=== PATIENT | male | born 1945 | race Caucasian/White ===

== ENCOUNTER 2018-02-17 14:28 | Observation (INO) | payer BC, MEDICARE, OTHER ==
[2018-02-17] MEDS ORDERED: 0.9 % SODIUM CHLORIDE 1000ML 1,000 ML IV PRN ×2 (14:46→18:43)
[2018-02-17] MEDS ORDERED: METHYLPREDNISOLONE PF 125MG/VIAL IVP ONE (14:48)
[2018-02-17] MEDS ORDERED: IPRATROPIUM/ALBUTEROL (0.5MG/3MG) NEB INH ONE (14:48)
[2018-02-17 14:54] LABS: HEMATOCRIT 43.2 % (42.0-52.0); MEAN CELL VOLUME 82.4 fl (81-97); MEAN CORPUSCULAR HEMOGLOBIN 26.7 pg (27-33); MEAN CORPUSCULAR HGB CONC 32.4 g/dl (32-36); MEAN PLATELET VOLUME 9.2 fl (7.4-10.4); PLATELET COUNT 271 K/uL (130-400); RED BLOOD COUNT 5.24 M/uL (4.40-5.70); RED CELL DISTRIBUTION WIDTH 16.8 % (11.5-14.5); WHITE BLOOD COUNT W/O DIFF 7.8 K/uL (4.2-12.2)
[2018-02-17 15:04] LABS: PLATELET ESTIMATE NORMAL (NORMAL)
[2018-02-17 15:09] LABS: BLOOD UREA NITROGEN 13 mg/dL (8-23); EST GLOMERULAR FILTRATION RATE > 60 mL/min
[2018-02-17 15:12] LABS: GLUCOSE,RANDOM 112 mg/dL (74-109)
[2018-02-17 15:18] LABS: CKMB 2.6 ng/mL (<6.73)
--- NOTE | 2018-02-17 15:25 | Emergency Department Record ---
History of Present Illness - General Chief Complaint: Difficulty Breathing Stated Complaint: SOB Time Seen by Provider: 02/17/18 14:45 Source: Patient, RN notes reviewed Mode of Arrival: Ambulatory - History of Present Illness Initial Comments: cough and SOB for 1 week and his pulse ox 84% on arrival and he is coughing up sputum. PMH of copd and right lung lobectomy 30 years ago Onset/Timin -: Week(s) Improves With: Oxygen, Rest Worsens With: Exertion Known History Of: Congestive heart failure, COPD Context: Other Treatments Prior to Arrival: None - Related Data Home Oxygen Therapy: No Home Medications Medication Instructions Recorded Confirmed Last Taken Atorvastatin Calcium [Lipitor] 10 mg PO DAILY 02/17/18 02/17/18 02/17/18 Azithromycin [Zithromax] 250 mg PO ASDIR 02/17/18 02/17/18 02/17/18 Budesonide/Formoterol Fumarate 10.2 gm IH BID 02/17/18 02/17/18 02/17/18 [Symbicort 160-4.5 Mcg Inhaler] Cetirizine HCl [Zyrtec] 10 mg PO DAILY 02/17/18 02/17/18 02/17/18 Cholecalciferol (Vitamin D3) 1,000 unit PO BID 02/17/18 02/17/18 02/17/18 [Vitamin D3] Cyanocobalamin (Vitamin B-12) 1,000 mcg PO DAILY 02/17/18 02/17/18 02/17/18 [Vitamin B-12] Diltiazem HCl [Cardizem LA] 360 mg PO DAILY 02/17/18 02/17/18 02/17/18 Fluticasone Propionate [Flonase] 2 spray EACH NARES BID 02/17/18 02/17/18 Folic Acid 1 mg PO BID 02/17/18 02/17/18 02/17/18 Furosemide [Lasix] 20 mg PO DAILY 02/17/18 02/17/18 02/17/18 Guaifenesin [Mucinex] 600 mg PO BID 02/17/18 02/17/18 02/17/18 Metoprolol Succinate [Toprol Xl] 25 mg PO DAILY 02/17/18 02/17/18 02/16/18 Rivaroxaban [Xarelto] 20 mg PO DAILY 02/17/18 02/17/18 02/16/18 Tiotropium [place] [Spiriva] 18 mcg IH BID 02/17/18 02/17/18 02/17/18 Valsartan 80 mg PO DAILY 02/17/18 02/17/18 02/17/18 Allergies Allergy/AdvReac Type Severity Reaction Status Date / Time No Known Drug Intolerances Allergy Unknown Unverified 03/04/14 10:02 Allergies: Allergy Unknown Uncoded 03/04/14 10:02 Travel Screening - Travel/Exposure Within Last 30 Days Have you traveled within the last 30 days?: No - Travel/Exposure Within Last Year Have you traveled outside the [place] in the last year?: No - Additonal Travel Details Have you been exposed to anyone with a communicable illness?: No - Travel Symptoms Symptom Screening: None Review of Systems Reviewed: No additional complaints except as noted below Constitutional: Reports: As per HPI. Denies: Chills, Fever, Malaise, Night sweats, Weakness, Weight change Eyes: Reports: As per HPI. Denies: Eye discharge, Eye pain, Photophobia, Vision change ENT: Reports: As per HPI, Congestion. Denies: Dental pain, Ear pain, Epistaxis , Hearing loss, Throat pain Respiratory: Reports: As per HPI, Cough, Dyspnea. Denies: Hemoptysis, Stridor, Wheezes Cardiovascular: Reports: As per HPI, Dyspnea on exertion. Denies: Arrhythmia, Chest pain, Edema, Murmurs, Orthopnea, Palpitations, Paroxysmal nocturnal dyspnea, Rheumatic Fever, Syncope Endocrine: Reports: As per HPI. Denies: Fatigue, Heat or cold intolerance, Polydipsia, Polyuria Gastrointestinal: Reports: As per HPI. Denies: Abdominal pain, Constipation, Diarrhea, Hematemesis, Hematochezia, Melena, Nausea, Vomiting Genitourinary: Reports: As per HPI. Denies: Dysuria, Frequency, Hematuria, Incontinence, Retention, Testicular pain, Testicular mass, Urgency Musculoskeletal: Reports: As per HPI. Denies: Arthralgia, Back pain, Gout, Joint swelling, Myalgia, Neck pain Skin: Reports: As per HPI. Denies: Bruising, Change in color, Change in hair/ nails, Lesions, Pruritus, Rash Neurological: Reports: As per HPI. Denies: Abnormal gait, Confusion, Headache, Numbness, Paresthesias, Seizure, Tingling, Tremors, Vertigo, Weakness Psychiatric: Reports: As per HPI. Denies: Anxiety, Auditory hallucinations, Depression, Homicidal thoughts, Suicidal thoughts, Visual hallucinations Hematological/Lymphatic: Reports: As per HPI. Denies: Anemia, Blood Clots, Easy bleeding, Easy bruising, Swollen glands Past Medical History - SOCIAL HISTORY Smoking Status: Former smoker Alcohol Use: Heavy Drug Use: None - RESPIRATORY Hx Respiratory Disorders: Yes Hx COPD: Yes Hx Pulmonary Embolism: Yes - CARDIOVASCULAR Hx Cardio Disorders: Yes Hx CHF: Yes Hx Hypertension: Yes - NEURO Hx Neuro Disorders: No - GI Hx GI Disorders: Yes Hx Ulcer: Yes (ulceritive colitis) - Hx Genitourinary Disorders: No - ENDOCRINE Hx Endocrine Disorders: Yes Hx Diabetes: Yes (controlled went away) - MUSCULOSKELETAL Hx Musculoskeletal Disorders: No - PSYCH Hx Psych Problems: No - HEMATOLOGY/ONCOLOGY Hx Hematology/Oncology Disorders: No Family Medical History Any Significant Family History?: No Physical Exam - General General Appearance: Alert, Oriented x3, Cooperative, Moderate distress - Head Head exam: Normal inspection - Eye Eye exam: Normal appearance, PERRL Pupils: Normal accommodation - ENT ENT exam: Normal exam, Mucous membranes moist, Normal external ear exam, Normal orophraynx, TM's normal bilaterally Ear exam: Normal external inspection. negative: External canal tenderness Nasal Exam: Normal inspection. negative: Discharge, Sinus tenderness Mouth exam: Normal external inspection, Tongue normal Teeth exam: Normal inspection. negative: Dental caries Throat exam: Normal inspection. negative: Tonsillar erythema, Tonsillar exudate - Neck Neck exam: Normal inspection, Full ROM. negative: Tenderness - Respiratory Respiratory exam: Respiratory distress, Wheezes - Cardiovascular Cardiovascular Exam: Regular rate, Normal rhythm, Normal heart sounds - GI/Abdominal GI/Abdominal exam: Soft, Normal bowel sounds. negative: Tenderness - Rectal Rectal exam: Deferred - exam: Deferred - Extremities Extremities exam: Normal inspection, Full ROM, Normal capillary refill. negative: Tenderness - Back Back exam: Reports: Normal inspection, Full ROM. Denies: Muscle spasm, Rash noted, Tenderness - Neurological Neurological exam: Alert, Normal gait, Oriented X3, Reflexes normal - Psychiatric Psychiatric exam: Normal affect, Normal mood - Skin Skin exam: Dry, Intact, Normal color, Warm Course Vital Signs 02/17/18 02/17/18 14:34 14:45 Temperature 97.7 F Pulse Rate 84 84 Respiratory 20 20 Rate Blood Pressure 187/80 Pulse Ox 84 L - Reevaluation(s) Reevaluation #1: discussed case with Do and will admit to Dr. Conrad for exacerbation of COPD bronchitis 02/17/18 17:09 Medical Decision Making - Lab Data Result diagrams: 02/17/18 14:45 02/17/18 14:45 Lab Results 02/17/18 02/17/18 02/17/18 Range/Units 14:45 14:45 14:45 WBC 7.8 (4.2-12.2) K/uL RBC 5.24 (4.40-5.70) M/uL Hgb 14.0 (14.0-18.0) gm/dl Hct 43.2 (42.0-52.0) % MCV 82.4 (81-97) fl MCH 26.7 L (27-33) pg MCHC 32.4 (32-36) g/dl RDW 16.8 H (11.5-14.5) % Plt Count 271 (130-400) K/uL MPV 9.2 (7.4-10.4) fl Neutrophils % 73.0 (47-80) % Eosinophils % Not Reportable Basophils % Not Reportable Lymphocytes 17.0 (16-45) % Monocytes 9.0 (0-9) % Platelet Estimate Normal (NORMAL) RBC Morphology Normal Eosinophil Count 1.0 (0-6) % APTT 33.8 (24.5-39.1) SECONDS Sodium 135 L (136-145) mmol/L Potassium 3.9 (3.4-4.5) mmol/L Chloride 92 L (98-107) mmol/L Carbon Dioxide 27.0 (22-29) mmol/L Anion Gap 16.0 (7-16) BUN 13 (8-23) mg/dL Creatinine 1.0 (0.7-1.2) mg/dL Estimated GFR > 60 mL/min Random Glucose 112 H (74-109) mg/dL Calcium 8.9 (8.8-10.2) mg/dL CK-MB (CK-2) 2.6 (<6.73) ng/mL Troponin T < 0.010 (0-0.010) ng/mL Disposition Clinical Impression: COPD (chronic obstructive pulmonary disease) with acute bronchitis, Hypoxia Decision to Admit: Admit from ER Condition: (2) Stable Forms: Patient Portal Access Time of Disposition: 17:11 Quality - Quality Measures Quality Measures: N/A - Blood Pressure Screening Does Patient Have Any of the Following: No Blood Pressure Classification: Pre-Hypertensive BP Reading Systolic Measurement: 187 Diastolic Measurement: 80 Screening for High Blood Pressure: < Pre-Hypertensive BP, F/U Documented > [ [id number]] Pre-Hypertensive Follow-up Interventions: Referral to alternative/primary care provider.
[2018-02-17] MEDS ORDERED: CEFTRIAXONE SODIUM 1 GM in 0.9 % SODIUM CHLORIDE 100ML 100 ML IVPB ONE (15:26)
[2018-02-17] MEDS ORDERED: AZITHROMYCIN 500 MG TABLET PO ONE (15:27)
[2018-02-17 17:39] LABS: INFLUENZA A NEGATIVE (NEGATIVE); INFLUENZA B NEGATIVE (NEGATIVE)
[2018-02-17] MEDS ORDERED: ALBUTEROL SULFATE (0.083%) 2.5 MG/3 ML NEB INH PRN (18:43)
[2018-02-17] MEDS ORDERED: ACETAMINOPHEN 500 MG TABLET PO PRN (18:43)
[2018-02-17] MEDS: CEFTRIAXONE SODIUM 1 GM in 0.9 % SODIUM CHLORIDE 100ML 100 ML IVPB SCH (18:59)
[2018-02-17] MEDS: METHYLPREDNISOLONE PF 125MG/VIAL IVP SCH (18:59)
[2018-02-17] MEDS: IPRATROPIUM/ALBUTEROL (0.5MG/3MG) NEB INH SCH ×2 (20:20→21:03)
[2018-02-17] MEDS: SYMBICORT PUFF SCH (21:00)
[2018-02-17] MEDS ORDERED: PATIENT OWN MED: PUFF SCH (22:00)
[2018-02-17] MEDS: GUAIFENESIN 600 MG TABCR PO SCH (22:34)
[2018-02-17] MEDS: FLUTICASONE PROPIONATE 50MCG NASAL 16 GM BTL SCH ×2 (22:34→22:37)
[2018-02-17] MEDS: FOLIC ACID 1 MG TABLET PO SCH (22:34)
[2018-02-18] MEDS: METHYLPREDNISOLONE PF 125MG/VIAL IVP SCH ×2 (03:49→14:21)
[2018-02-18] MEDS: IPRATROPIUM/ALBUTEROL (0.5MG/3MG) NEB INH SCH (06:07)
[2018-02-18 06:13] LABS: BASO % 0.2 % (0-6); HEMATOCRIT 39.1 % (42.0-52.0); HEMOGLOBIN 13.1 gm/dl (14.0-18.0); LYMPH % 9.4 % (16-45); MEAN CELL VOLUME 81.6 fl (81-97); MEAN CORPUSCULAR HEMOGLOBIN 27.3 pg (27-33); MEAN CORPUSCULAR HGB CONC 33.5 g/dl (32-36); MEAN PLATELET VOLUME 9.3 fl (7.4-10.4); MONO % 1.8 % (0-9); PLATELET COUNT 216 K/uL (130-400); RED BLOOD COUNT 4.79 M/uL (4.40-5.70); RED CELL DISTRIBUTION WIDTH 16.4 % (11.5-14.5); WHITE BLOOD COUNT W/O DIFF 6.6 K/uL (4.2-12.2)
[2018-02-18] MEDS: CEFTRIAXONE SODIUM 1 GM in 0.9 % SODIUM CHLORIDE 100ML 100 ML IVPB SCH (06:52)
[2018-02-18 06:53] LABS: PLATELET ESTIMATE NORMAL (NORMAL)
[2018-02-18 06:54] LABS: ALB/GLOB RATIO 1.5 (1.1-1.8); ALBUMIN 3.8 g/dL (4.0-5.0); ALKALINE PHOSPHATASE 62 U/L (40-129); ALT/SGPT 23 U/L (<41); AST/SGOT 23 U/L (10.0-50.0); BLOOD UREA NITROGEN 12 mg/dL (8-23); CREATININE 0.8 mg/dL (0.7-1.2); EST GLOMERULAR FILTRATION RATE > 60 mL/min; GLUCOSE,RANDOM 221 mg/dL (74-109); TOTAL PROTEIN 6.4 g/dL (6.6-8.7)
[2018-02-18] MEDS ORDERED: ALBUTEROL SULFATE (0.083%) 2.5 MG/3 ML NEB INH PRN (08:31)
[2018-02-18] MEDS: SYMBICORT PUFF SCH (09:53)
[2018-02-18] MEDS ORDERED: LORATADINE 10 MG TABLET PO SCH (10:00)
[2018-02-18] MEDS ORDERED: FUROSEMIDE 20 MG TABLET PO SCH (10:00)
[2018-02-18] MEDS ORDERED: VALSARTAN 80 MG TAB PO SCH (10:00)
[2018-02-18] MEDS ORDERED: AZITHROMYCIN 500 MG TABLET PO SCH (10:00)
[2018-02-18] MEDS ORDERED: DILTIAZEM 180MG CR CAPSULE PO SCH (10:00)
[2018-02-18] MEDS ORDERED: ATORVASTATIN 20 MG TABLET PO SCH (10:00)
[2018-02-18] MEDS ORDERED: METOPROLOL SUCC 25 MG TAB.ER PO SCH (10:00)
[2018-02-18] MEDS ORDERED: RIVAROXABAN 20 MG TABLET PO SCH (10:00)
[2018-02-18] MEDS: GUAIFENESIN 600 MG TABCR PO SCH (10:23)
[2018-02-18] MEDS: FOLIC ACID 1 MG TABLET PO SCH (10:25)
--- NOTE | 2018-02-18 10:25 | History & Physical ---
History of Present Illness - Date of Service Date of Service for History & Physical: 02/18/18 - History of Present Illness Admitting Diagnosis: copd exacerbation. hypoxia. bronchitis History of Present Illness: Pt. is a 73 year-old male who presented to the ED on 02/17/18 with complaint of shortness of breath and cough for 1 week and his pulse ox was 84% upon arrival. His cough was productive for sputum. 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 Pt. is on azithromycin 250mg three times/week for his COPD. In the ED, his vital signs were: BP 187/80, heart rate of 84, RR 20, T 97.7F , and pulse ox of 84% on room air. Chest xray was negative for infectious process. Influenza negative. EKG normal. CBC and CMP were unremarkable. Serial cardiac enzymes were normal. 2 liters of oxygen were initiated and azithromycin 500mg and Rocephin 1gm were administered. Based on his symptoms and comorbidities of COPD, he was admitted for COPD with acute bronchitis and hypoxia. 02/18/18: Pt. is resting in bed, he reports have symptoms have greatly improved and he feels like his breathing is back to his baseline. IV abx changed to PO. Morning CBC and CMP remain stable. Pt. expresses interest in discharge today , however, he has been using 2L of oxygen during this admission, otherwise, his saturation decreases to low-mid 80s. Home oxygen qualifier completed and pt. does quality for 2 liters of oxygen at rest/sleep and 3-4 liters for ambulation/ activity. Paper prescription provided and will arrange home O2. [facility] and his D[facility] must be covered by [facility], he has a f/u appt with [facility] on Tuesday. Plan to d/c home today with Cefdinir 300mg BID for 4 more days, azithromycin 500mg for 4 more days, prednisone 40mg for 4 days, and home oxygen therapy. Travel Screening - Travel/Exposure Within Last 30 Days Have you traveled within the last 30 days?: No - Travel/Exposure Within Last Year Have you traveled outside the [place] in the last year?: No - Additonal Travel Details Have you been exposed to anyone with a communicable illness?: No - Travel Symptoms Symptom Screening: None Review of Systems Constitutional: Reports: As per HPI. Denies: Chills, Fever, Malaise, Night sweats, Weakness, Weight change Eyes: Reports: As per HPI. Denies: Eye discharge, Eye pain, Photophobia, Vision change ENT: Reports: As per HPI, Congestion. Denies: Dental pain, Ear pain, Epistaxis , Hearing loss, Throat pain Respiratory: Reports: As per HPI, Cough, Dyspnea. Denies: Hemoptysis, Stridor, Wheezes Cardiovascular: Reports: As per HPI, Dyspnea on exertion. Denies: Arrhythmia, Chest pain, Edema, Murmurs, Orthopnea, Palpitations, Paroxysmal nocturnal dyspnea, Rheumatic Fever, Syncope Endocrine: Reports: As per HPI. Denies: Fatigue, Heat or cold intolerance, Polydipsia, Polyuria Gastrointestinal: Reports: As per HPI. Denies: Abdominal pain, Constipation, Diarrhea, Hematemesis, Hematochezia, Melena, Nausea, Vomiting Genitourinary: Reports: As per HPI. Denies: Dysuria, Frequency, Hematuria, Incontinence, Retention, Testicular pain, Testicular mass, Urgency Musculoskeletal: Reports: As per HPI. Denies: Arthralgia, Back pain, Gout, Joint swelling, Myalgia, Neck pain Skin: Reports: As per HPI. Denies: Bruising, Change in color, Change in hair/ nails, Lesions, Pruritus, Rash Neurological: Reports: As per HPI. Denies: Abnormal gait, Confusion, Headache, Numbness, Paresthesias, Seizure, Tingling, Tremors, Vertigo, Weakness Psychiatric: Reports: As per HPI. Denies: Anxiety, Auditory hallucinations, Depression, Homicidal thoughts, Suicidal thoughts, Visual hallucinations Hematological/Lymphatic: Reports: As per HPI. Denies: Anemia, Blood Clots, Easy bleeding, Easy bruising, Swollen glands Past Medical History - SOCIAL HISTORY Smoking Status: Former smoker Alcohol Use: Occasional Drug Use: None - RESPIRATORY Hx Respiratory Disorders: Yes Hx COPD: Yes Hx Pulmonary Embolism: Yes - CARDIOVASCULAR Hx Cardio Disorders: Yes Hx CHF: Yes Hx Hypertension: Yes - NEURO Hx Neuro Disorders: No - GI Hx GI Disorders: Yes Hx Ulcer: Yes (ulceritive colitis) - Hx Genitourinary Disorders: No - ENDOCRINE Hx Endocrine Disorders: Yes Hx Diabetes: Yes (controlled went away) - MUSCULOSKELETAL Hx Musculoskeletal Disorders: No - PSYCH Hx Psych Problems: No - HEMATOLOGY/ONCOLOGY Hx Hematology/Oncology Disorders: No Family Medical History Any Significant Family History?: No Hx Cancer: Brother/Sister Hx Dementia: Mother Hx Heart Disease: Father H&P Meds/Allergies - Allergies Allergies: Allergies Allergy/AdvReac Type Severity Reaction Status Date / Time lisinopril Allergy RASH Verified 02/17/18 19:11 azathioprine [From Imuran] AdvReac RASH Verified 02/17/18 19:11 - Home Medications Home Medications Medication Instructions Recorded Confirmed Last Taken Atorvastatin Calcium [Lipitor] 10 mg PO QHS 02/17/18 02/17/18 02/17/18 Azithromycin [Zithromax] 250 mg PO ASDIR 02/17/18 02/17/18 02/17/18 Budesonide/Formoterol Fumarate 10.2 gm IH BID 02/17/18 02/17/18 02/17/18 [Symbicort 160-4.5 Mcg Inhaler] Cetirizine HCl [Zyrtec] 10 mg PO DAILY 02/17/18 02/17/18 02/17/18 Cholecalciferol (Vitamin D3) 1,000 unit PO BID 02/17/18 02/17/18 02/17/18 [Vitamin D3] Cyanocobalamin (Vitamin B-12) 1,000 mcg PO DAILY 02/17/18 02/17/18 02/17/18 [Vitamin B-12] Diltiazem HCl [Cardizem LA] 360 mg PO DAILY 02/17/18 02/17/18 02/17/18 Fluticasone Propionate [Flonase] 2 spray EACH NARES BID 02/17/18 02/17/18 Folic Acid 1 mg PO BID 02/17/18 02/17/18 02/17/18 Furosemide [Lasix] 20 mg PO DAILY 02/17/18 02/17/18 02/17/18 Guaifenesin [Mucinex] 1,200 mg PO BID 02/17/18 02/17/18 02/17/18 Metoprolol Succinate [Toprol Xl] 25 mg PO QHS 02/17/18 02/17/18 02/16/18 Rivaroxaban [Xarelto] 20 mg PO QHS 02/17/18 02/17/18 02/16/18 Tiotropium [place] [Spiriva] 18 mcg IH BID 02/17/18 02/17/18 02/17/18 Valsartan 80 mg PO QHS 02/17/18 02/17/18 02/17/18 Previous Rx's Medication Instructions Recorded Azithromycin [Zithromax] 500 mg PO DAILY #5 tab 02/18/18 Cefdinir 300 mg PO BID #7 capsule 02/18/18 Prednisone [Prednisone 20Mg] 40 mg PO DAILYWM #8 tab 02/18/18 - Active Medications Active Medications: Current Medications Acetaminophen (Tylenol 500mg Tab) 500 mg PO Q6H PRN PRN Reason: PAIN/TEMP Albuterol Sulfate () 2.5 mg INH RESP.Q4H.WA PRN PRN Reason: DIFFICULTY IN BREATHING Last Admin: 02/18/18 09:53 Dose: 2.5 mg Atorvastatin Calcium (Lipitor) 10 mg PO DAILY [facility] Azithromycin (Zithromax) 500 mg PO DAILY [facility] Cefdinir (Cefdinir) 300 mg PO BID [facility] Stop: 02/21/18 22:01 Diltiazem HCl (Cardizem Cd) 360 mg PO DAILY [facility] Fluticasone Propionate (Flonase) 2 spray NA BID [facility] Last Admin: 02/17/18 22:37 Dose: 2 spray Folic Acid () 1 mg PO BID [facility] Last Admin: 02/17/18 22:34 Dose: 1 mg Furosemide (Lasix) 20 mg PO DAILY [facility] Guaifenesin (Mucinex) 600 mg PO BID [facility] Last Admin: 02/17/18 22:34 Dose: 600 mg Sodium Chloride () 1,000 mls @ 15 mls/hr IV .Q24H PRN PRN Reason: LARGE VOLUME IV Sodium Chloride () 1,000 mls @ 15 mls/hr IV .Q24H PRN PRN Reason: LARGE VOLUME IV Loratadine (Claritin) 10 mg PO DAILY [facility] Methylprednisolone Sodium Succinate (Solu-Medrol) 60 mg IVP Q8H [facility] Last Admin: 02/18/18 03:49 Dose: 60 mg Metoprolol Succinate (Toprol Xl) 25 mg PO DAILY [facility] Patient Own Med: Symbicort 160/4.5 Mcg Inhaler 2 each PUFF BID [facility] Last Admin: 02/18/18 09:53 Dose: 2 each Rivaroxaban (Xarelto) 20 mg PO DAILY [facility] Valsartan (Diovan) 80 mg PO DAILY [facility] Physical Exam - Vital Signs Vital Signs: Vital Signs - Last 24 Hrs Temp Pulse Pulse Resp BP BP Pulse Ox 02/18/18 06:07 72 16 94 L 02/18/18 06:00 98.6 F 86 18 161/78 94 L 02/18/18 02:00 98.2 F 87 18 154/72 94 L 02/17/18 21:35 98.7 F 96 H 18 162/79 92 L 02/17/18 21:00 86 18 02/17/18 20:20 95 H 18 93 L 02/17/18 19:05 96 H 20 161/76 90 L - General General Appearance: Alert, Oriented x3, Cooperative, Moderate distress - Head Head exam: Normal inspection - Eye Eye exam: Normal appearance, PERRL Pupils: Normal accommodation - ENT ENT exam: Normal exam, Mucous membranes moist, Normal external ear exam, Normal orophraynx, TM's normal bilaterally Ear exam: Normal external inspection. negative: External canal tenderness Nasal Exam: Normal inspection. negative: Discharge, Sinus tenderness Mouth exam: Normal external inspection, Tongue normal Teeth exam: Normal inspection. negative: Dental caries Throat exam: Normal inspection. negative: Tonsillar erythema, Tonsillar exudate - Neck Neck exam: Normal inspection, Full ROM. negative: Tenderness - Respiratory Respiratory exam: Decreased breath sounds, Wheezes (Expiratory). negative: Accessory muscle use - Cardiovascular Cardiovascular Exam: Regular rate, Normal rhythm, Normal heart sounds - GI/Abdominal GI/Abdominal exam: Soft, Normal bowel sounds. negative: Tenderness - Rectal Rectal exam: Deferred - exam: Deferred - Extremities Extremities exam: Normal inspection, Full ROM, Normal capillary refill. negative: Tenderness - Back Back exam: Reports: Normal inspection, Full ROM. Denies: Muscle spasm, Rash noted, Tenderness - Neurological Neurological exam: Alert, Normal gait, Oriented X3, Reflexes normal - Psychiatric Psychiatric exam: Normal affect, Normal mood - Skin Skin exam: Dry, Intact, Normal color, Warm Results - Labs Result Diagrams: 02/18/18 06:00 02/18/18 06:00 Labs Last 24 Hours: Laboratory Results - last 24 hr 02/18/18 02/18/18 06:00 06:00 WBC 6.6 RBC 4.79 Hgb 13.1 L Hct 39.1 L MCV 81.6 MCH 27.3 MCHC 33.5 RDW 16.4 H Plt Count 216 MPV 9.3 Neutrophils % 87.0 H Lymphocytes % 9.4 L Monocytes % 1.8 Eosinophils % 0.0 Basophils % 0.2 Lymphocytes 10.0 L Monocytes 3.0 Platelet Estimate Normal RBC Morphology Normal Sodium 134 L Potassium 4.3 Chloride 95 L Carbon Dioxide 27.0 Anion Gap 12.0 BUN 12 Creatinine 0.8 Estimated GFR > 60 Random Glucose 221 H Calcium 8.8 Total Bilirubin 0.30 AST 23 ALT 23 Alkaline Phosphatase 62 Total Protein 6.4 L Albumin 3.8 L Globulin 2.6 Albumin/Globulin Ratio 1.5 - Imaging and Cardiology Chest x-ray Status: Pending (No acute infectious process), Image reviewed VTE H&P Assessment - Risk for VTE Risk for VTE: Yes Risk Level: Low Risk Assessment Date: 02/18/18 Risk Assessment Time: 10:25 VTE Orders Placed or Will Be Placed: No VTE Reason for No Prophylaxis: Not Indicated (Pt. is on anticoagulant therapy) Plan - Inpatient Certification Inpatient Certification: Admit to inpatient care: Based on my medical assessment, after consideration of patient's risk factors (age, co-morbidities and patient presenting symptoms and acuity), I expect that this patient will remain in the hospital greater than or equal to two midnights and that the services needed warrant inpatient care because: Patient Risk Factors: [] Estimated length of stay: [] The patient may reasonably be expected to be discharged or transferred to a hospital within 96 hours after admission to [facility]. Services needed: [] Post hospital care (if known): [] I certify that my determination is in accordance with my understanding of Medicare requirements for reasonable and necessary inpatient services. - Detailed Diagnosis and Plan (1) COPD (chronic obstructive pulmonary disease) with acute bronchitis Current Visit: Yes Status: Acute Base Code: J44.0 - CHRONIC OBSTRUCTIVE PULMON DISEASE W ACUTE LOWER RESP INFCT; J20.9 - ACUTE BRONCHITIS, UNSPECIFIED Comment: 02/18/18: hx of COPD, right lobectomy. Pt. recieved 60mg solumedrol q8h, 1gm rocephon q12h and azithromycin 500mg. Duo nebs and albuterol nebs q4h were administered. Changed abx to PO and will dc home with prednisone 40mg for 4 days, cefdinir 300mg bid for 4 more days, azithromycin 500mg/day for 4 more days. [facility], recommended to pursue home nebulizer. (2) Hypoxia Current Visit: Yes Status: Acute Base Code: R09.02 - HYPOXEMIA Comment: : Pt hx of COPD, pulse ox 84% upon presentation to the ED. Pt. has remained 91-94% with 2L oxygen nc. Home oxygen qualifier completed and pt. does qualify for home O2, 2 liters at rest and 3-4 liters with activity/ ambulation. Plan to d/c home today with home oxygen. (3) At risk for deep venous thrombosis Current Visit: Yes Status: Acute Base Code: Z91.89 - OTH PERSONAL RISK FACTORS, NOT ELSEWHERE CLASSIFIED Comment: 02/18/18: hx of PE and on xarelto 20mg daily (4) Full code status Current Visit: Yes Status: Acute Base Code: Z78.9 - OTHER SPECIFIED HEALTH STATUS Comment: 02/18/18: Pt. is full code status
--- NOTE | 2018-02-18 10:27 | Discharge Summary ---
Providers Discharge Summary Date: 02/18/18 Date of admission: 02/17/18 18:26 Expected Date of Discharge: 02/18/18 Attending physician: MARIBEL VANEGAS Primary care physician: [facility] Physical Exam - Vital Signs Vital Signs: Vital Signs - Last 24 Hrs Temp Pulse Pulse Resp BP BP Pulse Ox 02/18/18 06:07 72 16 94 L 02/18/18 06:00 98.6 F 86 18 161/78 94 L 02/18/18 02:00 98.2 F 87 18 154/72 94 L 02/17/18 21:35 98.7 F 96 H 18 162/79 92 L 02/17/18 21:00 86 18 02/17/18 20:20 95 H 18 93 L 02/17/18 19:05 96 H 20 161/76 90 L - General General Appearance: Alert, Oriented x3, Cooperative, Moderate distress - Head Head exam: Normal inspection - Eye Eye exam: Normal appearance, PERRL Pupils: Normal accommodation - ENT ENT exam: Normal exam, Mucous membranes moist, Normal external ear exam, Normal orophraynx, TM's normal bilaterally Ear exam: Normal external inspection. negative: External canal tenderness Nasal Exam: Normal inspection. negative: Discharge, Sinus tenderness Mouth exam: Normal external inspection, Tongue normal Teeth exam: Normal inspection. negative: Dental caries Throat exam: Normal inspection. negative: Tonsillar erythema, Tonsillar exudate - Neck Neck exam: Normal inspection, Full ROM. negative: Tenderness - Respiratory Respiratory exam: Respiratory distress, Wheezes - Cardiovascular Cardiovascular Exam: Regular rate, Normal rhythm, Normal heart sounds - GI/Abdominal GI/Abdominal exam: Soft, Normal bowel sounds. negative: Tenderness - Rectal Rectal exam: Deferred - exam: Deferred - Extremities Extremities exam: Normal inspection, Full ROM, Normal capillary refill. negative: Tenderness - Back Back exam: Reports: Normal inspection, Full ROM. Denies: Muscle spasm, Rash noted, Tenderness - Neurological Neurological exam: Alert, Normal gait, Oriented X3, Reflexes normal - Psychiatric Psychiatric exam: Normal affect, Normal mood - Skin Skin exam: Dry, Intact, Normal color, Warm Hospitalization - Hospitalization Admission Diagnosis: copd exacerbation. hypoxia. bronchitis - Problem List/Discharge Diagnosis (1) At risk for deep venous thrombosis Current Visit: Yes Status: Acute Base Code: Z91.89 - [facility] PERSONAL RISK FACTORS, NOT ELSEWHERE CLASSIFIED Comment: 02/18/18: hx of PE and on xarelto 20mg daily (2) Full code status Current Visit: Yes Status: Acute Base Code: Z78.9 - OTHER SPECIFIED HEALTH STATUS Comment: 02/18/18: Pt. is full code status (3) COPD (chronic obstructive pulmonary disease) with acute bronchitis Current Visit: Yes Status: Acute Base Code: J44.0 - CHRONIC OBSTRUCTIVE PULMON DISEASE W ACUTE LOWER RESP INFCT; J20.9 - ACUTE BRONCHITIS, UNSPECIFIED Comment: 02/18/18: hx of COPD, right lobectomy. Pt. recieved 60mg solumedrol q8h, 1gm rocephon q12h and azithromycin 500mg. Duo nebs and albuterol nebs q4h were administered. Changed abx to PO and will dc home with prednisone 40mg for 4 days, cefdinir 300mg bid for 4 more days, azithromycin 500mg/day for 4 more days. [facility], recommended to pursue home nebulizer. (4) Hypoxia Current Visit: Yes Status: Acute Base Code: R09.02 - HYPOXEMIA Comment: : Pt hx of COPD, pulse ox 84% upon presentation to the ED. Pt. has remained 91-94% with 2L oxygen nc. Home oxygen qualifier completed and pt. does qualify for home O2, 2 liters at rest and 3-4 liters with activity/ ambulation. Plan to d/c home today with home oxygen. - Disposition Discharge home, self-care - Hospitalization Course Disposition: Home, Self-Care Hospital Course: Pt. is a 73 year-old male who presented to the ED on 02/17/18 with complaint of shortness of breath and cough for 1 week and his pulse ox was 84% upon arrival. His cough was productive for sputum. His past history includes COPD, CHF, HTN, hyperlipidemia, pulmonary embolism (on correction xarelto), ulcerative colotis with colectomy, ex-smoker, right lung lobectomy 30 years ago (he states it was due to repeated pneumonia infections). Pt. is on azithromycin 250mg three times/week for his COPD. In the ED, his vital signs were: BP 187/80, heart rate of 84, RR 20, T 97.7F , and pulse ox of 84% on room air. Chest xray was negative for infectious process. Influenza negative. EKG normal. CBC and CMP were unremarkable. Serial cardiac enzymes were normal. 2 liters of oxygen were initiated and azithromycin 500mg and Rocephin 1gm were administered. Based on his symptoms and comorbidities of COPD, he was admitted for COPD with acute bronchitis and hypoxia. 02/18/18: Pt. is resting in bed, he reports have symptoms have greatly improved and he feels like his breathing is back to his baseline. IV abx changed to PO. Morning CBC and CMP remain stable. Pt. expresses interest in discharge today , however, he has been using 2L of oxygen during this admission, otherwise, his saturation decreases to low-mid 80s. Home oxygen qualifier completed and pt. does quality for 2 liters of oxygen at rest/sleep and 3-4 liters for ambulation/ activity. Paper prescription provided and will arrange home O2. Pt. is a [facility] patient and his DME must be covered by [facility], he has a f/u appt with [facility] on Tuesday. Plan to d/c home today with Cefdinir 300mg BID for 4 more days, azithromycin 500mg for 4 more days, prednisone 40mg for 4 days, and home oxygen therapy. Abnormal Labs: Abnormal Lab Results 02/18/18 02/18/18 Range/Units 06:00 06:00 Hgb 13.1 L (14.0-18.0) gm/dl Hct 39.1 L (42.0-52.0) % RDW 16.4 H (11.5-14.5) % Neutrophils % 87.0 H (47-80) % Lymphocytes % 9.4 L (16-45) % Lymphocytes 10.0 L (16-45) % Sodium 134 L (136-145) mmol/L Chloride 95 L (98-107) mmol/L Random Glucose 221 H (74-109) mg/dL Total Protein 6.4 L (6.6-8.7) g/dL Albumin 3.8 L (4.0-5.0) g/dL Condition at Discharge: (2) Stable Discharge Diagnosis: COPD with acute bronchitis VTE Discharge VTE Reason For No Overlap Therapy: Not Indicated (Pt. already on Xarelto for prophylaxis) Discharge Medications - Discharge Medications Prescriptions: Azithromycin [Zithromax] 500 mg PO DAILY #5 tab Cefdinir 300 mg PO BID #7 capsule Prednisone [Prednisone 20Mg] 40 mg PO DAILYWM #8 tab Home Medications: Ambulatory Orders Atorvastatin Calcium [Lipitor] 10 mg PO QHS 02/17/18 [Last Taken 02/17/18] Azithromycin [Zithromax] 250 mg PO ASDIR 02/17/18 [Last Taken 02/17/18] Budesonide/Formoterol Fumarate [Symbicort 160-4.5 Mcg Inhaler] 10.2 gm IH BID [Last Taken 02/17/18] Cetirizine HCl [Zyrtec] 10 mg PO DAILY 02/17/18 [Last Taken 02/17/18] Cholecalciferol (Vitamin D3) [Vitamin D3] 1,000 unit PO BID 02/17/18 [Last Taken 02/17/18] Cyanocobalamin (Vitamin B-12) [Vitamin B-12] 1,000 mcg PO DAILY 02/17/18 [Last Taken 02/17/18] Diltiazem HCl [Cardizem LA] 360 mg PO DAILY 02/17/18 [Last Taken 02/17/18] Fluticasone Propionate [Flonase] 2 spray EACH NARES BID 02/17/18 [Last Taken ] Folic Acid 1 mg PO BID 02/17/18 [Last Taken 02/17/18] Furosemide [Lasix] 20 mg PO DAILY 02/17/18 [Last Taken 02/17/18] Guaifenesin [Mucinex] 1,200 mg PO BID 02/17/18 [Last Taken 02/17/18] Metoprolol Succinate [Toprol Xl] 25 mg PO QHS 02/17/18 [Last Taken 02/16/18] Rivaroxaban [Xarelto] 20 mg PO QHS 02/17/18 [Last Taken 02/16/18] Tiotropium [place] [Spiriva] 18 mcg IH BID 02/17/18 [Last Taken 02/17/18] Valsartan 80 mg PO QHS 02/17/18 [Last Taken 02/17/18] Azithromycin [Zithromax] 500 mg PO DAILY #5 tab 02/18/18 [Last Taken Unknown] Cefdinir 300 mg PO BID #7 capsule 02/18/18 [Last Taken Unknown] Prednisone [Prednisone 20Mg] 40 mg PO DAILYWM #8 tab 02/18/18 [Last Taken Unknown] Discharge Plan - Discharge Instructions Activity at Discharge: Increase Activity as Tolerated Diet at Discharge: Regular Diet Additional Instructions: Home oxygen- 2 liters at rest and during sleep, 3-4 liters with walking/activity Resume your normal 3x/week dose of azithromycin 250mg after you complete your course of 500mg Follow up hospitalization at [facility] scheduled for Tuesday 02/20 Return to the ED if you experience any worsening shortness of breath/fever, or any chest pain Quality Measures - Quality Measures Quality Measures: Advance Directives, Documentation of Current Medications in Medical Record, Elder Maltreatment Screen and Follow-Up Plan, Screening for High Blood Pressure and F/U Documented - Current Medications Quality Measure: Measure #130: Documentation of Current Medications Documentation of Current Medications: <Current Medications Documented/Reviewed> [G8427] - Blood Pressure Screening Quality Measure: Screening for High Blood Pressure and Follow-Up Documented Does Patient Have Any of the Following: Active Dx of HTN Blood Pressure Classification: Hypertensive Reading Systolic Measurement: 167 Diastolic Measurement: 74 Screening for High Blood Pressure: Patient Exclusion, Hx of HTN [G9744] - Advance Directives Quality Measure: Measure #47: Care Plan Advance Directives Established: No Advance Directives Information Provided To Patient: No Advance Directives on File: No Living Will: No Power of Assembly Line Robot Operator: No Advance Care Planning: <Care Plan/Decision Maker Documented; Discussed & Documented> [1124F] - Elder Abuse Suspicion Index Screening: Elder Abuse Suspicion Index Screening Rely on people for bathing, dressing, shopping, banking, etc: No Prevented from getting food, clothes, medication, etc: No Made to feel shamed or threatened by someone: No Forced to sign papers or use money against will: No Feel afraid, touched in ways not wanted or hurt physically: No Poor eye contact, withdrawn, malnourished, cuts or bruises: No Screening Result: Negative result EASI Reference Information: [place] OGLESBY, Bruno Alatorre, [place], Yaritza Yancey.Development and validation of a tool to assist physicians identification of elder abuse: The Elder Abuse Suspicion Index (EASI ). Journal of Elder Abuse and Neglect, 2008; 20 (3): 276-300. - Elder Maltreatment Screen Quality Measures: Elder Maltreatment Screen and Follow-Up Plan Elder Maltreatment Screen: <Negative, No Follow-Up Plan Required> [G5316]
[2018-02-18] MEDS: FLUTICASONE PROPIONATE 50MCG NASAL 16 GM BTL SCH (11:29)
[2018-02-18] MEDS ORDERED: CEFDINIR 300 MG CAPSULE PO ONE (15:10)
[2018-02-18] MEDS ORDERED: CEFDINIR 300 MG CAPSULE PO SCH (22:00)
[2018-02-18] MEDS ORDERED: PREDNISONE 20 MG TAB PO SCH (22:00)
--- NOTE | 2018-02-19 10:05 | RADIOLOGY REPORT ---
DATE: 02/17/2018 at 3:12 p.m. EXAM: PORTABLE CHEST. HISTORY: Shortness of breath and difficulty in breathing for a week, cough. TECHNIQUE: AP portable chest. COMPARISON: [facility], chest, dated 09/02/2011. FINDINGS: Postoperative changes on the right as before. Prominent elevation of the right hemidiaphragm slightly more pronounced than before with what is presumably a mildly distended loop of hepatic flexure beneath the right hemidiaphragm. Mild discoid atelectasis at the right base. The left lung appears expanded and essentially clear. Blunting of the left lateral costophrenic angle by fluid or thickened pleura. Heart size is at about the upper limits of normal allowing for the AP portable technique. Thoracic dextroscoliosis. Old left clavicular fracture. IMPRESSION: 1. POSTOPERATIVE CHANGES ON THE RIGHT BEFORE. 2. ELEVATED RIGHT HEMIDIAPHRAGM WITH SOME MILD DISCOID ATELECTASIS ON THE RIGHT BASE. 3. BLUNTING OF THE LEFT LATERAL COSTOPHRENIC ANGLE BY FLUID OR THICKENED PLEURA. 4. THORACIC DEXTROSCOLIOSIS. JOB NUMBER: [id number] [facility]
== END 2018-02-18 15:08 | disposition home or self-care (01) ==
LOC: ER 14:28 → MEDSURG 18:26 → INTOOBSV 18:26
PROVIDERS: ADMIT Internal Medicine; ATTEND Internal Medicine
DX: J44.1 Chronic obstructive pulmonary disease with (acute) exacerbation (principal); J20.9 Acute bronchitis, unspecified; R09.02 Hypoxemia; I50.9 Heart failure, unspecified; I10 Essential (primary) hypertension; E78.5 Hyperlipidemia, unspecified; E11.9 Type 2 diabetes mellitus without complications; K51.90 Ulcerative colitis, unspecified, without complications; Z87.891 Personal history of nicotine dependence; Z90.2 Acquired absence of lung [part of]
CPT/HCPCS: 99285 ×2; 96365; 96366; 96375; 85730; 82553; 80048; 80053; 87400; 84484; 85027 ×2; 71045; 94640 ×5; 94620; 94761; 94760; 93005; 93010; G0378 ×2; J3490 ×2; 99220; J2930; J7613